=== PATIENT | female | born 1940 | race Caucasian/White ===

== ENCOUNTER 2018-12-24 12:16 | Emergency (ER) | payer OTHER, MEDICAID ==
[2018-12-24] MEDS ORDERED: NAPROXEN SODIUM 220 MG TAB PO ONE (14:09)
--- NOTE | 2018-12-24 14:09 | EDPHY ---
H & P Stated Complaint: r leg pain for months was rubbing it yesterday and now noticing lump bruisi Time Seen by Provider: 12/24/18 13:52 HPI/ROS: CHIEF COMPLAINT: Lump behind right knee, ongoing right lower extremity pain HISTORY OF PRESENT ILLNESS: 78-year-old female with prior back and neck fusion presents with a lump behind her right knee. She has had ongoing right lower extremity pain, especially in her right hip for 2 years. The pain increases with ambulation and hip movement. She takes Naprosyn with relief, but ran out of Naprosyn. This morning she awoke and noticed a lump behind her right knee. Has been advised to have a lumbar fusion, with does not desire to have surgery. No recent injury or fall. REVIEW OF SYSTEMS: complete 10 point ROS reviewed and is negative except for the noted elements in the HPI - Personal History Current Tetanus Diphtheria and Acellular Pertussis (TDAP): Yes Tetanus Vaccine Date: < 10 - Medical/Surgical History Hx Asthma: No Hx Chronic Respiratory Disease: No Hx Diabetes: No Hx Cardiac Disease: No Hx Renal Disease: No Hx Cirrhosis: No Hx Alcoholism: No Hx HIV/AIDS: No Hx Splenectomy or Spleen Trauma: No Other PMH: back and neck fusion - Social History Smoking Status: Never smoked - Physical Exam Exam: General Appearance: Alert, pleasant Eyes: Pupils equal and round, no conjunctival pallor ENT, Mouth: Mucous membranes moist Neck: Normal inspection Respiratory: Lungs are clear to auscultation Cardiovascular: Regular rate and rhythm Gastrointestinal: Abdomen is soft and nontender Neurological: A&O, nonfocal, steady gait using walker Skin: Warm and dry, no rash Extremities: Right lower extremity-3 cm area of ecchymosis behind the right knee, right hip range of motion painful, especially flexion; pain with range of motion of the right knee, no joint effusion Psychiatric: Mood and affect normal Constitutional: Initial Vital Signs Temperature (C) 37 C 12/24/18 12:27 Heart Rate 66 12/24/18 12:27 Respiratory Rate 18 12/24/18 12:27 Blood Pressure 165/83 H 12/24/18 12:27 O2 Sat (%) 91 L 12/24/18 12:27 O2 Delivery Mode Room Air Allergies/Adverse Reactions: Penicillins Allergy (Verified 12/24/18 12:25) BLOOD PRESERVATIVE Allergy (Uncoded 09/26/13 21:01) Home Medications: Medication Instructions Recorded Cymbalta 09/26/13 Naproxen [Naprosyn] 500 mg PO Q12 PRN #30 tablet 12/24/18 Medical Decision Making - Diagnostics Imaging Results: Hip X-Ray 12/24/18 14:05 Impression: Degenerative osteoarthritic changes and osseous demineralization are noted. Right Hip, Two Views History: Pain post trauma. Findings: The femoral head is well rounded and normally located. No fracture or dislocation is identified. Postoperative changes of instrumentation are seen in the lumbar spine. Impression: Right hip negative for acute abnormality. Postoperative changes noted in the lower lumbar spine. Knee X-Ray 12/24/18 14:05 Impression: Degenerative osteoarthritic changes and osseous demineralization are noted. Right Hip, Two Views History: Pain post trauma. Findings: The femoral head is well rounded and normally located. No fracture or dislocation is identified. Postoperative changes of instrumentation are seen in the lumbar spine. Impression: Right hip negative for acute abnormality. Postoperative changes noted in the lower lumbar spine. Extremity Venous Study 12/24/18 14:06 Impression: No evidence of deep vein thrombosis in the right lower extremity. Results called to Dr. Hanson at 2:57 PM. Imaging: Discussed imaging studies w/ call center consultant Radiologist, I viewed and interpreted images myself ED Course/Re-evaluation: This pt presents with ecchymosis behind the rt knee and a concern for DVT. Sono negative for DVT. Also concerned about chronic rt hip/knee pain. Xrays reveal DJD. Suggest f/u with pcp/ortho. Rx: naprosyn at pt request. Differential Diagnosis: includes though not limited to DVT, sciatica, arthritis, bursitis, fx, tumor, compartment syndrome - Data Points Medications Given: Discontinued Medications Naproxen (Aleve) 220 mg PO EDNOW ONE Stop: 12/24/18 14:10 Last Admin: 12/24/18 14:42 Dose: 220 mg Departure - Departure Disposition: Home, Routine, Self-Care Clinical Impression: Hematoma, Right leg pain Condition: Good Instructions: Leg Pain (ED), Hematoma (ED) Referrals: WILLIAM CHANCE [Other] - As per Instructions Prescriptions: Naproxen [Naprosyn] 500 mg PO Q12 PRN #30 tablet PRN Reason: pain
[2018-12-24 15:27] VITALS: BP 199/78
== END 2018-12-24 15:27 | disposition home or self-care (01) ==
DX: M79.604 Pain in right leg (principal); M79.81 Nontraumatic hematoma of soft tissue

== ENCOUNTER → 2019-02-25 | Outpatient (CLI) | payer OTHER, MEDICAID | LOC: FIMAGING 13:06 | DX: S73.191A Other sprain of right hip, initial encounter (principal); S83.511A Sprain of anterior cruciate ligament of right knee, initial encounter; S83.411A Sprain of medial collateral ligament of right knee, initial encounter; S83.231A Complex tear of medial meniscus, current injury, right knee, initial encounter; S83.271A Complex tear of lateral meniscus, current injury, right knee, initial encounter; M51.35 Other intervertebral disc degeneration, thoracolumbar region; M51.36 Other intervertebral disc degeneration, lumbar region; M46.95 Unspecified inflammatory spondylopathy, thoracolumbar region; M46.96 Unspecified inflammatory spondylopathy, lumbar region; M76.01 Gluteal tendinitis, right hip; M76.891 Other specified enthesopathies of right lower limb, excluding foot; M25.461 Effusion, right knee; Z98.1 Arthrodesis status ==

== ENCOUNTER → 2019-03-16 | Outpatient (CLI) | payer OTHER, MEDICAID | LOC: CIMAGING 11:00 ==